=== PATIENT | female | born 1940 | race Caucasian/White ===

== ENCOUNTER → 2016-09-30 | Outpatient (CLI) | payer OTHER ==
[~2016-09-30] MED LIST: ALBUTEROL17 GM INH; ANTIVERT; ASPIRIN PO; CIPRO PO; DARVOCET-N 1001 TAB PO; DIAZEPAM PO; EVISTA60 M1; EVISTA60 M1 PO; EVISTA60 MG PO; FLONASE16 GM; HYDROCODON-ACE1 EAC7 PO; IBUPROFEN PO; KEFLEX PO; KEFLEX500 M1; KEFLEX500 MG PO; LEVAQUIN; LEVAQUIN PO; PAROXETINE HCL20 M1 PO; PAXIL; PAXIL PO; PHENERGAN25 M1; PHENERGAN25 MG PO; PREDNISONE PO; PRILOSEC PO; SECTRAL; SECTRAL200 MG PO; VOLTAREN75 MG PO; VYTORIN 10/40 T1 TAB; WELLBUTRIN PO; ZITHROMAX PO; ZOCOR; ZOCOR PO
--- NOTE | ~2016-09-30 | MY29 ---
[facility] A Service of [facility] RADIOLOGY TEXT RESULTS PATIENT: ARTUR FAUST LOCATION: [facility] : 44 UNIT #: [id number] AGE: [address]: Delio Alanis MD SEX: F ORDER DR: [id number] [facility] [address] [place], [place] [address] [id number] O MR#: [id number] Acc #: [id number] NAME: ARTUR FAUST. : 1940 SEX: F STUDY DATE/TIME: 09/30/2016 14:02 UNIT: [facility] ROOM: STUDY DESCRIPTION: MY ROBERTA SCREENING W/ CAD BILAT Attending Physician: Delio Alanis M.D. Referring Physician: Delio Alanis M.D. Ordering Physician: Delio Alanis M.D. Primary Care Physician: Delio Alanis M.D. MEDICAL IMAGING REPORT This report is preliminary unless electronic signature is present EXAM Digital screening mammogram with CAD INDICATIONS Routine screening. PROCEDURE Bilateral CC and MLO views obtained on a digital mammography unit FDA-approved CAD device utilized. COMPARISON 08/28/2015 FINDINGS Breasts are predominantly fat replaced. There is no dominant mass or suspicious calcification. IMPRESSION Negative screening mammogram screen interval 1 year suggested. Patients over the age of 40 are entered into a reminder system with target due date for the next mammogram. A result letter will also be sent to the patient. BIRADS: 1, negative. Dictated by... Shailesh Mustafa M.D. THIS IS AN ELECTRONICALLY VERIFIED REPORT Shailesh Mustfaa M.D. at 10/02/2016 7:12 AM EED/rnr [facility] A Service [facility] RADIOLOGY TEXT RESULTS PATIENT: ARTUR FAUST LOCATION: [facility] : 44 UNIT #: [id number] AGE: [address]: Delio Alanis MD SEX: F ORDER DR: TD: 10/01/2016 18:15 JOB #: [id number] MEDICAL IMAGING REPORT Page 1 of 1 COPY
--- NOTE | ~2016-09-30 | BD1 ---
[facility] A Service of [facility] RADIOLOGY TEXT RESULTS PATIENT: ARTUR FAUST LOCATION: [facility] : 44 UNIT #: [id number] AGE: [address]: Delio Alanis MD SEX: F ORDER DR: [id number] [facility] [address] [place], [place] [address] [id number] O MR#: [id number] Acc #: [id number] NAME: ARTUR FAUST. : 1940 SEX: F STUDY DATE/TIME: 09/30/2016 14:06 UNIT: [facility] ROOM: STUDY DESCRIPTION: BD Dexa Bone Dens 1+ Site Attending Physician: Delio Alanis M.D. Referring Physician: Delio Alanis M.D. Ordering Physician: Delio Alanis M.D. Primary Care Physician: Delio Alanis M.D. MEDICAL IMAGING REPORT This report is preliminary unless electronic signature is present EXAM Bone densitometry, 09/30/2016. CLINICAL HISTORY 76-year-old postmenopausal female. FINDINGS Bone mineral density of the lumbar spine (L1-L4) is calculated at 0.940 g/cm2. This correlates with a T-score of -1 and a Z-score of 1.4. This is classified as normal bone mineralization. No significant change from the 2015 comparison. The bone mineral density of the left proximal femoral neck region is calculated at 0.605 g/cm2. This correlates with a T-score of -2.2 and a Z-score of -0.2. This is classified as osteopenia. There has been no significant change from the 2015 comparison. IMPRESSION Osteopenia. No significant change from 2015. Dictated by... Boom Hall M.D. THIS IS AN ELECTRONICALLY VERIFIED REPORT Boom Hall M.D. at 10/02/2016 6:52 AM SANGEETHA/frederic TD: 10/01/2016 16:18 JOB #: [id number] MEDICAL IMAGING REPORT [facility] A Service of [facility] RADIOLOGY TEXT RESULTS PATIENT: ARTUR FAUST LOCATION: [facility] #: [id number] : 44 UNIT #: [id number] AGE: [address]: Delio Alanis MD SEX: F ORDER DR: Page 1 of 1 COPY
== END | disposition home or self-care (01) ==
LOC: CWCC 13:37
DX: Z13.820 Encounter for screening for osteoporosis (principal); Z12.31 Encounter for screening mammogram for malignant neoplasm of breast; M85.80 Other specified disorders of bone density and structure, unspecified site
CPT/HCPCS: 77080; G0202